=== PATIENT | male | born 1950 | race Caucasian/White ===

== ENCOUNTER 2023-02-27 11:45 | Outpatient (CLI) | payer MEDICARE, OTHER | END 2023-02-27 11:46 | disposition home or self-care (01) | LOC: ULT 11:45 | PROVIDERS: ATTEND Family Medicine | DX: N18.31 Chronic kidney disease, stage 3a (principal) | CPT/HCPCS: 76770 ==

== ENCOUNTER 2025-02-08 15:05 | Outpatient (CLI) | payer MEDICARE, OTHER | END 2025-02-08 15:06 | disposition home or self-care (01) | LOC: ULT 15:05 | PROVIDERS: ATTEND Family Medicine | DX: R35.1 Nocturia (principal); N28.89 Other specified disorders of kidney and ureter | CPT/HCPCS: 76770 ==